=== PATIENT | female | born 1965 | race Caucasian/White ===

== ENCOUNTER 2016-09-07 19:56 | Emergency (ER) | payer OTHER ==
[~2016-09-07] VITALS: Ht 157.4 cm; Wt 99.8 kg
[~2016-09-07 19:56] MED LIST: VICODIN 5/500 505 MG PO
[2016-09-07] MEDS ORDERED: LOSARTAN POTASS50 M1 PO (20:10)
[2016-09-07] MEDS ORDERED: SUMATRIPTAN SU100 M1 PO (20:11)
[2016-09-07] MEDS ORDERED: HYDROCODONE BIT1 T11 PO (21:11)
[2016-09-07] MEDS ORDERED: NAPROSYN500 MG PO (21:11)
== END 2016-09-07 21:27 | disposition home or self-care (01) ==
LOC: ED 19:56
DX: S42.292A Other displaced fracture of upper end of left humerus, initial encounter for closed fracture (principal); R03.0 Elevated blood-pressure reading, without diagnosis of hypertension; Z88.1 Allergy status to other antibiotic agents; Z88.8 Allergy status to other drugs, medicaments and biological substances; W01.198A Fall on same level from slipping, tripping and stumbling with subsequent striking against other object, initial encounter; Y93.89 Activity, other specified; Y92.89 Other specified places as the place of occurrence of the external cause; Y99.9 Unspecified external cause status

== ENCOUNTER → 2020-08-18 | Outpatient (CLI) | payer OTHER ==
[~2020-08-18] MED LIST changes: +HYDROCODONE BIT1 T11 PO; +LOSARTAN POTASS50 M1 PO; +NAPROSYN500 MG PO; +SUMATRIPTAN SU100 M1 PO
== END | disposition home or self-care (01) ==
LOC: COVID19 15:28
PROVIDERS: ATTEND Internal Medicine
DX: U07.1 COVID-19 (principal)